=== PATIENT | male | born 1955 | race Caucasian/White ===

== ENCOUNTER 2016-06-25 08:55 | Observation (INO) | payer OTHER ==
[2016-06-25] VITALS (8 sets, daily range): BP systolic 103–165; BP diastolic 59–99; PULSE 55–70; TEMP 36.3–36.6; O2SAT 90–100; Ht 188 cm; Wt 111.8 kg
[~2016-06-25] VITALS: Ht 188 cm; Wt 111.8 kg
[~2016-06-25 08:55] MED LIST: ATOR-24 PO; MECL1TAB42 PO; METO25TA56 PO; NAPR1TAB9 PO; NTRGSL/4 UT
[2016-06-25] MEDS ORDERED: SODIUM CHLORIDE 0.9% 1000ML 1,000 ML IV STA (09:36)
[2016-06-25 09:49] LABS: BASO % 0.9 %; BASO ABS # 0.09 K/uL (0-0.2); COMPLETE YES; EOS % 1.9 %; HEMATOCRIT 44.5 % (42-52); IG% 0.2 %; MEAN CELL VOLUME 89.9 fL (80-100); MEAN CORPUSCULAR HEMOGLOBIN 31.5 pg (25-34); MEAN CORPUSCULAR HGB CONC 35.1 g/dl (32-36); MEAN PLATELET VOLUME 11.2 fL (7.4-10.4); MONO % 5.2 %; NEUT % 72.8 %; PLATELET COUNT 313 K/uL (130-400); RED BLOOD COUNT 4.95 M/uL (4.7-6.1); WHITE BLOOD COUNT 10.54 K/uL (4.8-10.8)
--- NOTE | 2016-06-25 09:52 | EMERGENCY ROOM VISIT NOTE ---
History Report prepared by Alexis: Nicole Edmondson Under the Supervision of: Dr. Chung Baum M.D. First contact with patient: 09:32 Chief Complaint: DIZZY Stated Complaint: NUMBNESS ON LEFT SIDE, SWEATING, BACK PAIN Nursing Triage Summary: pt stated that he has some weakness and it feels different on LLE and LUE as well as feeling like he has some feeling of "puffiness" around to left eye as well no facial droop noted as well no changes in speech. History of Present Illness The patient is a 61 year old male who presents to the Emergency Room with complaints of persistent, worsening left lower extremity numbness that began around 0620 this morning. He currently rates his discomfort as a 3/10 in severity. The patient states that he typically drives an hour to and from work each day. He states that this morning he started noting left lower extremity numbness at 0620 stating that it felt like his left leg fell asleep. The patient states that by 0720 he noticed increase numbness and states that he didn 't feel right. He additionally notes slight left arm numbness, left eye puffiness, slurring of words, and dizziness with his symptoms today. The patient additionally notes that he has been feeling shaky and diaphoretic. He states that he felt that he was stumbling this morning and could not walk properly. The patient denies ever experiencing something like this in the past. He states that he had a previous [place] 11-12 years ago, but denies any history of stroke or TIA. The patient states that he took half of a Meclizine tablet this morning at 0720 without relief of his symptoms. He denies any chest pain or headache. Source of History: patient Onset: 0620 this morning Position: other (left lower extremity) Symptom Intensity: 3/10 Quality: numbness Timing: worsening, other (persistent) Associated Symptoms: + diaphoresis, No chest pain, No headache Note: Associated Symptoms: slurring of words, stumbling, dizziness, left eye puffiness Review of Systems See HPI for pertinent positives & negatives. A total of 10 systems reviewed and were otherwise negative. Past Medical & Surgical Medical Problems: (1) Hypertension (2) Myocardial infarction Family History No pertinent family history Social History Smoking Status: Current Every Day Smoker Marital Status: Housing Status: lives with significant other Occupation Status: employed Current/Historical Medications Scheduled Atorvastatin (Lipitor), 40 MG PO DAILY Lisinopril (Zestril), 20 MG PO DAILY Meclizine Hcl (Meclizine Hcl), 25 MG PO TID Metoprolol Tartrate (Lopressor) (Lopressor), 12.5 MG PO BID Nitroglycerin (Nitroglycerin Lingual), 1 SPRAY PO UD Scheduled PRN Naproxen (Aleve), 220 MG PO for Pain Allergies Coded Allergies: No Known Allergies (Unverified , 11/30/14) Physical Exam Vital Signs Date Time Temp Pulse Resp B/P Pulse Ox O2 Delivery O2 Flow Rate FiO2 06/25/16 11:39 58 17 163/102 97 Room Air 06/25/16 10:29 56 16 174/115 96 06/25/16 10:12 52 16 149/89 06/25/16 09:53 96 Room Air 06/25/16 09:52 60 16 149/94 96 Room Air 06/25/16 09:16 59 06/25/16 09:01 36.7 59 18 180/93 98 Room Air Physical Exam GENERAL: Patient is in no acute distress. HEENT: No acute trauma, normocephalic atraumatic, mucous membranes moist, no nasal congestion, no scleral icterus. NECK: No stridor, no adenopathy, no meningismus, trachea is midline. LUNGS: Clear to auscultation bilaterally, no wheeze, no rhonchi, breath sounds equal. HEART: Without murmurs gallops or rubs, regular rate and rhythm. ABDOMEN: Soft, nontender, bowel sounds positive, no hernias, no peritonitis. EXTREMITIES: No cyanosis or edema, full range of motion of all the joints without pain or difficulty, no signs for acute trauma. NEUROLOGIC: Awake and alert, no drift to the upper extremities. No cerebellar dysfunction to upper extremities. No facial droop or speech slur. Very subtle drift to left leg. Some difficulty with cerebellar function when testing left leg. SKIN: No rash, no jaundice, no diaphoresis. Medical Decision & Procedures ER Provider Diagnostic Interpretation: CT results as stated below per my review and radiologist interpretation: HEAD CT NONCONTRAST CT DOSE: 638.56 mGycm HISTORY: Stroke symptoms. Left-sided numbness. TECHNIQUE: Multiaxial CT images of the head were performed without the use of intravenous contrast. Automated exposure control was utilized for this study. Comparison: None. Findings: The paranasal sinuses and mastoid air cells are clear. The calvarium and skull base are intact. The ventricles and sulci are within normal limits. There is no mass, hematoma, midline shift, or acute infarct. Impression: No acute intracranial abnormality. Electronically signed by: Steve Prasad M.D. 06/25/2016 10:29 AM Dictated Date/Time: 06/25/2016 9:49 AM Laboratory Results 06/25/16 09:30 Red Blood Count 4.95, Mean Corpuscular Volume 89.9, Mean Corpuscular Hemoglobin 31.5, Mean Corpuscular Hemoglobin Concent 35.1, Mean Platelet Volume 11.2, Neutrophils (%) (Auto) 72.8, Lymphocytes (%) (Auto) 19.0, Monocytes (%) (Auto) 5.2, Eosinophils (%) (Auto) 1.9, Basophils (%) (Auto) 0.9, Neutrophils # (Auto) 7.68, Lymphocytes # (Auto) 2.00, Monocytes # (Auto) 0.55, Eosinophils # (Auto) 0.20, Basophils # (Auto) 0.09 06/25/16 09:30 Test 06/25/16 09:30 06/25/16 10:01 06/25/16 10:09 White Blood Count 10.54 K/uL (4.8-10.8) Red Blood Count 4.95 M/uL (4.7-6.1) Hemoglobin 15.6 g/dL (14.0-18.0) Hematocrit 44.5 % (42-52) Mean Corpuscular Volume 89.9 fL (80-100) Mean Corpuscular Hemoglobin 31.5 pg (25-34) Mean Corpuscular Hemoglobin Concent 35.1 g/dl (32-36) Platelet Count 313 K/uL (130-400) Mean Platelet Volume 11.2 fL (7.4-10.4) Neutrophils (%) (Auto) 72.8 % Lymphocytes (%) (Auto) 19.0 % Monocytes (%) (Auto) 5.2 % Eosinophils (%) (Auto) 1.9 % Basophils (%) (Auto) 0.9 % Neutrophils # (Auto) 7.68 K/uL (1.4-6.5) Lymphocytes # (Auto) 2.00 K/uL (1.2-3.4) Monocytes # (Auto) 0.55 K/uL (0.11-0.59) Eosinophils # (Auto) 0.20 K/uL (0-0.5) Basophils # (Auto) 0.09 K/uL (0-0.2) RDW Standard Deviation 43.5 fL (36.4-46.3) RDW Coefficient of Variation 13.2 % (11.5-14.5) Immature Granulocyte % (Auto) 0.2 % Immature Granulocyte # (Auto) 0.02 K/uL (0.00-0.02) Prothrombin Time 11.0 SECONDS (9.0-12.0) Prothromb Time International Ratio 1.0 (0.9-1.1) Activated Partial Thromboplast Time 27.5 SECONDS (21.0-31.0) Partial Thromboplastin Ratio 1.1 Anion Gap 12.0 mmol/L (3-11) Est Creatinine Clear Calc Drug Dose 78.7 ml/min Estimated GFR () 67.8 Estimated GFR (Non- 58.5 BUN/Creatinine Ratio 12.2 (10-20) Calcium Level 9.3 mg/dl (8.5-10.1) Total Creatine Kinase 157 U/L (39-308) Creatine Kinase MB 1.7 ng/ml (0.5-3.6) Creatine Kinase MB Ratio 1.1 (0-3.0) Troponin I < 0.015 ng/ml (0-0.045) Thyroid Stimulating Hormone (TSH) 1.340 uIu/ml (0.300-4.500) Bedside Glucose 105 mg/dl (70-99) Bedside Prothrombin Time INR 1.1 (0.9-1.1) Laboratory results reviewed by me. Medications Administered Medications (Trade) Dose Ordered Sig/Stoney Route Start Time Stop Time Status Last Admin Dose Admin Sodium Chloride (Nss 1000ml) 1,000 ml @ 200 mls/hr Q5H STAT IV 06/25/16 09:36 06/25/16 12:55 DC 06/25/16 10:09 200 MLS/HR Aspirin (Aspirin Chew) 324 mg NOW STAT PO 06/25/16 10:40 06/25/16 10:41 DC 06/25/16 10:47 324 MG Enoxaparin Sodium (Lovenox Inj) 40 mg QAM SC 06/25/16 11:30 07/25/16 11:29 06/25/16 15:21 40 MG ECG Indication: other (dizzy) Rate (beats per minute): 55 Rhythm: sinus bradycardia Findings: no acute ischemic change, no ectopy ED Course 0933: The patient was evaluated in room A3. A complete history and physical exam was performed. 0936: Ordered Sodium Chloride 1000 ml @ 200 mls/hr IV. 1011: I discussed the patient's case with Felicia Lin Neurology. She is going to evaluate the patient over TeleStroke. 1038: I discussed the patients case with Felicia Babb. After her evaluation she does not believe that the patient meets criteria for TPA, but should start Aspirin 1040: Ordered Aspirin 324 mg PO. 1044: I discussed the patients case with Dr. Dozier [facility]. She is going to evaluate the patient for further treatment. Medical Decision The patient is a 61 year old male who presents to the ED with complaints of numbness. Differential diagnoses considered include Stroke or TIA, electrolyte imbalance, dehydration, anemia, infection, cardiac ischemia. There is no leukocytosis or concerning anemia. No significant electrolyte abnormality, kidney failure. There is no coagulopathy. Brain CT shows no acute bleed or mass effect. EKG shows a sinus bradycardia, no acute ischemia. Cardiac enzyme testing 1 is not suggestive of acute cardiac injury. On exam, the patient did have some very subtle left lower leg weakness and left lower extremity cerebellar dysfunction. The patient was aggressively managed. A stroke alert was called. The [place] telemedicine neurologist was involved. It was decided that the patient was out of the window for TPA. The patient does seem to be feeling better as time goes on, he feels as if things have improved since being here in the hospital. The patient did receive IV saline and oral aspirin. I talked with him, I talked with the case supervisor. The on- call hospitalist was consulted. The patient requires a thorough CVA workup. Consults Time Called: 1006 Consulting Physician: Felicia Lin Neurology Returned Call: [phone] I discussed the patient's case with Felicia Lin Neurology. She is going to evaluate the patient over TeleStroke. Additional Consults: Time Called: 1040 Consulted Physician: LILY Denton Returned Call: [phone] Additional Comments: I discussed the patients case with LILY Denton. She is going to evaluate the patient for further treatment. Impression Primary Impression: Left-sided weakness Critical Care I have personally spent greater than 35 minutes of critical care time in the direct management of this patient. This includes bedside care, interpretation of diagnostic studies, and testing, discussion with consultants, patient, and family members, and other required patient management activities. This 35 minutes is in excess of all separately billable procedures. Scribe Attestation The scribe's documentation has been prepared under my direction and personally reviewed by me in its entirety. I confirm that the note above accurately reflects all work, treatment, procedures, and medical decision making performed by me. Departure Information Dispostion Being Evaluated By Hospitalist Quinten Lam M.D. (PCP)
[2016-06-25 09:57] LABS: PARTIAL THROMBOPLASTIN RATIO 1.1
[2016-06-25 09:59] LABS: BLOOD UREA NITROGEN 16 mg/dl (7-18); BUN/CREATININE RATIO 12.2 (10-20); CALCIUM 9.3 mg/dl (8.5-10.1); CARBON DIOXIDE 21 mmol/L (21-32); CHLORIDE 106 mmol/L (98-107); GLUCOSE 113 mg/dl (70-99); POTASSIUM 4.3 mmol/L (3.5-5.1); SODIUM 139 mmol/L (136-145)
[2016-06-25 10:03] LABS: CKMB/CK RATIO 1.1 (0-3.0)
[2016-06-25] MEDS ORDERED: LISI-725 PO (10:03)
[2016-06-25] MEDS ORDERED: NITR0.4S76 PO (10:04)
--- NOTE | 2016-06-25 10:30 | DIAGNOSTIC IMAGING REPORT ---
HEAD CT NONCONTRAST CT DOSE: 638.56 mGycm HISTORY: Stroke symptoms. Left-sided numbness. TECHNIQUE: Multiaxial CT images of the head were performed without the use of intravenous contrast. Automated exposure control was utilized for this study. Comparison: None. Findings: The paranasal sinuses and mastoid air cells are clear. The calvarium and skull base are intact. The ventricles and sulci are within normal limits. There is no mass, hematoma, midline shift, or acute infarct. Impression: No acute intracranial abnormality. Electronically signed by: Steve Prasad M.D. 06/25/2016 10:29 AM Dictated Date/Time: 06/25/2016 9:49 AM
[2016-06-25] MEDS ORDERED: ASPIRIN 81 MG CHEW PO STA (10:40)
[2016-06-25] MEDS ORDERED: ACETAMINOPHEN 325 MG TAB PO PRN (11:30)
[2016-06-25] MEDS ORDERED: LORAZEPAM 2 MG/ML 1 ML VIAL IV PRN (11:30)
[2016-06-25] MEDS ORDERED: ONDANSETRON INJ 2 MG/ML 2 ML VIAL IV PRN (11:30)
[2016-06-25] MEDS ORDERED: ALUMINUM/MAGNESIUM/SIMETH (MAALOX MAX) 30 ML UDC PO PRN (11:30)
[2016-06-25] MEDS ORDERED: HydrALAZINE HCL 20 MG/ML VIAL IV. PRN (11:30)
[2016-06-25] MEDS ORDERED: MAGNESIUM HYDROXIDE SUSP 30 ML UDC PO PRN (11:30)
[2016-06-25] MEDS ORDERED: PHARMACIST DISCHARGE MED REC CONSULT PRN (11:30)
--- NOTE | 2016-06-25 11:56 | History and Physical ---
History & Physical Date & Time of Service: Jun 25, 2016 at 11:44 Chief Complaint: Numbness On Left Side, Sweating, Back Pain Primary Care Physician: Quinten Merino M.D. History of Present Illness Source: patient, hospital records This patient is a pleasant 61-year-old male that presents the emergency department complaining of a numbness and tingling sensation particularly in his left lower extremity that started at approximately 6 AM this morning. He also notes that his legs felt "." He was having difficulty walking. He also felt like his speech was slightly slurred. His coworkers did not mention anything abnormal about his speech. His symptoms have been slowly improving. He does also note some numbness and tingling in his left arm and the left side of his face. He denies any headaches. No changes in vision. He denies any chest pain or pressure. He denies any shortness of breath. He is complaining of an odd sensation in between his shoulder blades that he describes as a cold water sensation. He has been relatively healthy recently. He was treated a few weeks back for a sinus infection. The symptoms dissipated. He denies any recent fever or chills. The patient does have a history of hypertension. He reports taking his morning dose of Lopressor this morning at approximately 4:30 AM. Past Medical/Surgical History History of CT approximately 10 years ago Hypertension Family History No pertinent family history Father- of an CT in his 60s Social History Smoking Status: Current Every Day Smoker (smokes 6-7 cigarettes per day) Alcohol Use: socially Marital Status: Housing status: lives with significant other Occupational Status: employed Allergies Coded Allergies: No Known Allergies (Unverified , 11/30/14) Home Medications Scheduled Atorvastatin (Lipitor), 40 MG PO DAILY Lisinopril (Zestril), 20 MG PO DAILY Meclizine Hcl (Meclizine Hcl), 25 MG PO TID Metoprolol Tartrate (Lopressor) (Lopressor), 12.5 MG PO BID Nitroglycerin (Nitroglycerin Lingual), 1 SPRAY PO UD Scheduled PRN Naproxen (Aleve), 220 MG PO for Pain Review of Systems 10 system review performed and negative unless noted in HPI or below Physical Exam Vital Signs Date Time Temp Pulse Resp B/P Pulse Ox O2 Delivery O2 Flow Rate FiO2 06/25/16 11:39 58 17 163/102 97 Room Air 06/25/16 10:29 56 16 174/115 96 06/25/16 10:12 52 16 149/89 06/25/16 09:53 96 Room Air 06/25/16 09:52 60 16 149/94 96 Room Air 06/25/16 09:16 59 06/25/16 09:01 36.7 59 18 180/93 98 Room Air VITALS: Vitals are noted significantly hypertensive GENERAL: 61-year-old male, anxious in appearance SKIN: The skin was without rashes, erythema, edema, or bruising. HEAD: Normocephalic atraumatic. EYES: Pupils equal round and reactive to light and accommodation. Conjunctivae without injection, sclerae without icterus. Extraocular movements intact. MOUTH: Mucous membranes slightly dry Tonsils are not enlarged. Pharynx without erythema or exudate. Uvula midline. Airway patent. Tongue does not deviate. NECK: Supple without nuchal rigidity. No lymphadenopathy. No JVD. HEART: Regular rate and rhythm without murmurs gallops or rubs. LUNGS: Clear to auscultation bilaterally without wheezes, rales or rhonchi. No accessory muscle use. ABDOMEN: Positive bowel sounds x 4.Soft, nontender, without organomegaly. No guarding or rebound tenderness. MUSCULOSKELETAL: No muscle atrophy, erythema, or edema noted. Strength 4/5 in the left lower extremity. Otherwise 5/5 throughout NEURO: Patient was alert and oriented to person place and time. Dull sensation noted to the left cheek and left leg. Cerebellar function intact. Negative pronator drift. Diagnostics Laboratory Results Results Past 24 Hours Test 06/25/16 09:30 06/25/16 10:01 06/25/16 10:09 Range/Units White Blood Count 10.54 4.8-10.8 K/uL Red Blood Count 4.95 4.7-6.1 M/uL Hemoglobin 15.6 14.0-18.0 g/dL Hematocrit 44.5 42-52 % Mean Corpuscular Volume 89.9 80-100 fL Mean Corpuscular Hemoglobin 31.5 25-34 pg Mean Corpuscular Hemoglobin Concent 35.1 32-36 g/dl Platelet Count 313 130-400 K/uL Mean Platelet Volume 11.2 7.4-10.4 fL Neutrophils (%) (Auto) 72.8 % Lymphocytes (%) (Auto) 19.0 % Monocytes (%) (Auto) 5.2 % Eosinophils (%) (Auto) 1.9 % Basophils (%) (Auto) 0.9 % Neutrophils # (Auto) 7.68 1.4-6.5 K/uL Lymphocytes # (Auto) 2.00 1.2-3.4 K/uL Monocytes # (Auto) 0.55 0.11-0.59 K/uL Eosinophils # (Auto) 0.20 0-0.5 K/uL Basophils # (Auto) 0.09 0-0.2 K/uL RDW Standard Deviation 43.5 36.4-46.3 fL RDW Coefficient of Variation 13.2 11.5-14.5 % Immature Granulocyte % (Auto) 0.2 % Immature Granulocyte # (Auto) 0.02 0.00-0.02 K/uL Prothrombin Time 11.0 9.0-12.0 SECONDS Prothromb Time International Ratio 1.0 0.9-1.1 Activated Partial Thromboplast Time 27.5 21.0-31.0 SECONDS Partial Thromboplastin Ratio 1.1 Sodium Level 139 136-145 mmol/L Potassium Level 4.3 3.5-5.1 mmol/L Chloride Level 106 98-107 mmol/L Carbon Dioxide Level 21 21-32 mmol/L Anion Gap 12.0 3-11 mmol/L Blood Urea Nitrogen 16 7-18 mg/dl Creatinine 1.30 0.60-1.40 mg/dl Est Creatinine Clear Calc Drug Dose 78.7 ml/min Estimated GFR () 67.8 Estimated GFR (Non- 58.5 BUN/Creatinine Ratio 12.2 10-20 Random Glucose 113 70-99 mg/dl Calcium Level 9.3 8.5-10.1 mg/dl Total Creatine Kinase 157 39-308 U/L Creatine Kinase MB 1.7 0.5-3.6 ng/ml Creatine Kinase MB Ratio 1.1 0-3.0 Troponin I < 0.015 0-0.045 ng/ml Bedside Glucose 105 70-99 mg/dl Bedside Prothrombin Time INR 1.1 0.9-1.1 Diagnostic Radiology Patient: IZA REGALADO Address1: [address] [facility] Rec: [id number] Address2: Acct ID: [id number] [facility] Zip: [place] [address] Date: 1955 Sex: M Room/Bed: Ref Phy: Quinten Merino M.D. SC: JESSICA Fofana Phy: Report #: [id number] Soheila Phy: Quinten Merino M.D. Test: HWO Admit Phy: Derrick Man: JOCELYNE Interpreting Phy: Steve Prasad MD Diagnosis: NUMBNESS ON LEFT SIDE, SWEATING, BACK PAIN Ordering Phy: Chung Baum M.D. Service Date: 06/25/16 Admit Date: 06/25/16 MNE: [id number] CONF: DICTATED BY: Steve Prasad M.D.]] CC: Chung Baum M.D. Maniglia, Anthony J, M.D. Endcc: [~ rep ct add3]] HEAD CT NONCONTRAST CT DOSE: 638.56 mGycm HISTORY: Stroke symptoms. Left-sided numbness. TECHNIQUE: Multiaxial CT images of the head were performed without the use of intravenous contrast. Automated exposure control was utilized for this study. Comparison: None. Findings: The paranasal sinuses and mastoid air cells are clear. The calvarium and skull base are intact. The ventricles and sulci are within normal limits. There is no mass, hematoma, midline shift, or acute infarct. Impression: No acute intracranial abnormality. Electronically signed by: Steve Prasad M.D. 06/25/2016 10:29 AM Dictated Date/Time: 06/25/2016 9:49 AM The status of this report is Signed. EKG Sinus bradycardia 55 bpm No acute ischemic changes noted Impression Assessment and Plan 61-year-old male with a past medical history of CT, coronary artery disease and hypertension presents emergency department with paresthesias in the left lower extremity. Left lower extremity is noted to be weak on exam. ?TIA vs CVA -Observe in telemetry -Neuro checks every 4 hours -MRI brain combo -Check echo -Trend cardiac enzymes -PT eval -Allow for permissive hypertension for now -Lipid profile -Neurology consult -Start ASA 324 mg daily -Smoking cessation -Blood pressure recommendations for the first month post hospital discharge 150/ 90-130/80, and after that blood pressure recommendations 130/80-110/70 -Total cholesterol goal 100- 200 and LDL goal less than 100 -Hemoglobin A1c goal less than 7 -Encourage cardiovascular exercise at least 3 times a week for 30 minutes. Hypertension-goal BP is noted above -Continue Lopressor 12.5 mg BID -Continue lisinopril 20 mg daily -Hydralazine 10 mg IV q 6 hr PRN Coronary artery disease status post CT -Continue medical management with beta dash, Livan and statin -ASA 324 daily added DVT prophylaxis -Lovenox 40 mg subQ daily -TEDS, SCDs CODE STATUS -LEVEL I FULL CODE I agree with PA assessment and plan and have seen and examined pt myself VSS, BP uncontrolled Labs reviewed States having paresthesias in left lower ext R/O SVA, MRI combo, carotid US pending Will also obtain HgA1C, TSH, B12 Level of Care Telemetry Resuscitation Status FULL RESUSCITATION VTE Prophylaxis VTE Risk Assessment Done? Y/N: Yes Risk Level: Low Given or contraindicated: Enoxaparin (Lovenox)SQ, T.E.D. Stockings, SCD's
[2016-06-25] MEDS ORDERED: LORAZEPAM INJ 0.5 MG in SYRINGE 0.75 ML IV PRN (13:15)
[2016-06-25] MEDS ORDERED: IV FLUIDS COMPLETED PRN (13:45)
[2016-06-25] MEDS: ENOXAPARIN 40 MG/0.4 ML SYR SC SCH (15:21)
--- NOTE | 2016-06-25 16:21 | ECHOCARDIOGRAM REPORT ---
*NOTICE TO RECEIVING CONSTITUTION PARTY AGENCY This information is strictly Confidential and protected under [place] law. [place] law prohibits you from making any further disclosure of this information unless further disclosure is expressly permitted by the written consent of the person to whom it pertains or is authorized by law. A general authorization for the release of medical or other information is not sufficient for this purpose. Hospital accepts no responsibility if the information is made available to any other person, INCLUDING THE PATIENT. Interpretation Summary * Name: IZA REGALADO Study Date: 06/25/2016 01:48 PM BP: 163/102 mmHg * Patient Location: C.2T\S\S229\S\2 HR: 60 * : 1955 (M/d/yyyy) Gender: Male Height: 74 in * Age: 61 yrs Ethnicity: CA Weight: 248 lb * Ordering Physician: Rand Krishnamurthy * Referring Physician: Self, Referred * Performed By: José Luis Cordon RCS * * Reason For Study: Source of cerebral disturbance * BSA: 2.4 m2 * -- Conclusions -- * 1. Normal LV size and wall thickness. * 2. Normal LV systolic function. LVEF 60-65%. No regional wall motion abnormalities. * 3. RV not well visualized but size and function appears grossly normal. * 4. No significant valvular pathology. * 5. Positive saline contrast study suggestive of PFO. * 6. No prior studies for comparison. Procedure Details * A complete two-dimensional transthoracic echocardiogram was performed (2D, M-mode, Doppler and color flow Doppler). * A saline contrast injection was performed to assess for cardiac shunting. * The injection was performed through an intravenous line in the right arm. * The attending nurse who injected the saline contrast was José Luis Veras RN. * A total of 20 cc of agitated saline was given. * A contrast injection of Definity was performed to improve assessment of LV function. * Contrast was injected into an intravenous site in the left arm. * One vial of Definity ultrasound contrast was diluted in normal saline to a total volume of 10 ml. A total of '2' ml of solution was administered during imaging. * Lot # [id number] of Definity utilized for procedure. * Expiration date . * The attending nurse who injected the contrast agent was josé luis Veras RN. Left Ventricle * The left ventricle is grossly normal size. * There is mild concentric left ventricular hypertrophy. * Ejection Fraction = 60-65%. * No regional wall motion abnormalities noted. Right Ventricle * The right ventricle is grossly normal size. * The right ventricle is not well visualized. * The right ventricular systolic function is normal as assessed by tricuspid annular plane systolic excursion (TAPSE) (normal >1.5 cm). Atria * The left atrial size is normal. * Right atrial size is normal. * Injection of contrast documented an interatrial shunt. Mitral Valve * The mitral valve is grossly normal. * There is no mitral valve stenosis. * Significant mitral regurgitation is absent. Tricuspid Valve * The tricuspid valve is not well visualized, but is grossly normal. * There is no tricuspid stenosis. * There is trace tricuspid regurgitation. Aortic Valve * The aortic valve opens well. * No hemodynamically significant valvular aortic stenosis. * There is no significant aortic regurgitation. Pulmonic Valve * The pulmonary valve is inadequately visualized, but the Doppler data is adequate for interpretation. * Pulmonic stenosis is absent. * There is no significant pulmonary regurgitation. Great Vessels * The aortic root and proximal ascending aorta are normal sized. * No Doppler or imaging evidence of an aortic coarctation. Pericardium/Pleural * There is no pericardial effusion. Great Vessels * Normal inferior vena cava size and collapsability with sniff indicates a normal right atrial pressure of 3 mmHg MMode 2D Measurements and Calculations IVSd 1.2 cm IVSs 1.6 cm LVIDd 5.0 cm LVIDs 3.0 cm LVPWd 1.2 cm LVPWs 1.6 cm IVS/LVPW 0.94 FS 41.0 % EDV(Teich) 119.1 ml ESV(Teich) 33.9 ml EF(Teich) 71.5 % EDV(cubed) 126.2 ml ESV(cubed) 26.0 ml EF(cubed) 79.4 % % IVS thick 33.4 % % LVPW thick 28.0 % LV mass(C)d 236.3 grams LV mass(C)dI 99.2 grams/m\S\2 LV mass(C)s 168.7 grams LV mass(C)sI 70.9 grams/m\S\2 CO(Teich) 5.1 l/min CI(Teich) 2.1 l/min/m\S\2 SV(Teich) 85.2 ml SI(Teich) 35.8 ml/m\S\2 CO(cubed) 6.0 l/min CI(cubed) 2.5 l/min/m\S\2 SV(cubed) 100.2 ml SI(cubed) 42.1 ml/m\S\2 Ao root diam 3.2 cm Ao root area 8.2 cm\S\2 ACS 2.1 cm LA dimension 4.6 cm LA/Ao 1.4 LVAd ap4 44.6 cm\S\2 LVLd ap4 9.6 cm EDV(MOD-sp4) 167.0 ml LVAs ap4 25.1 cm\S\2 LVLs ap4 8.2 cm ESV(MOD-sp4) 64.0 ml EF(MOD-sp4) 61.7 % LVAd ap2 42.6 cm\S\2 LVLd ap2 9.5 cm EDV(MOD-sp2) 154.0 ml LVAs ap2 22.1 cm\S\2 LVLs ap2 8.0 cm ESV(MOD-sp2) 49.0 ml EF(MOD-sp2) 68.2 % CO(MOD-sp4) 6.2 l/min CI(MOD-sp4) 2.6 l/min/m\S\2 SV(MOD-sp4) 103.0 ml SI(MOD-sp4) 43.3 ml/m\S\2 CO(MOD-sp2) 6.3 l/min CI(MOD-sp2) 2.6 l/min/m\S\2 SV(MOD-sp2) 105.0 ml SI(MOD-sp2) 44.1 ml/m\S\2 Doppler Measurements and Calculations MV E max jerome 94.3 cm/sec MV A max jerome 68.6 cm/sec MV E/A 1.4 MV P1/2t max jerome 93.0 cm/sec MV P1/2t 75.0 msec MVA(P1/2t) 2.9 cm\S\2 MV dec slope 363.2 cm/sec\S\2 MV dec time 0.19 sec Ao V2 max 144.4 cm/sec Ao max PG 8.3 mmHg Ao max PG (full) 2.1 mmHg LV V1 max PG 6.2 mmHg LV V1 max 124.9 cm/sec PA V2 max 103.8 cm/sec PA max PG 4.3 mmHg TR max jerome 208.7 cm/sec
[2016-06-25 18:11] LABS: CKMB/CK RATIO 0.9 (0-3.0)
--- NOTE | 2016-06-25 19:21 | DIAGNOSTIC IMAGING REPORT ---
MRI OF THE BRAIN WITHOUT IV CONTRAST CLINICAL HISTORY: Strokelike symptoms. Left-sided numbness. COMPARISON STUDY: CT of the brain dated 06/25/2016. TECHNIQUE: MRI of the brain was performed utilizing various T1 and T2-weighted sequences in the axial, sagittal, and coronal planes. IV contrast was not administered for this examination. FINDINGS: Brain parenchyma: There is minimal subcortical and periventricular microangiopathic change. The brain parenchyma is otherwise normal in appearance. There is no hemorrhage or mass effect. There is no restricted diffusion to suggest acute ischemia. Velasco-white matter differentiation is preserved. No extra-axial fluid collection is seen. The cerebellar tonsils are normal in configuration. Ventricles, sulci, and cisterns: Normal in configuration. Pituitary and sella: Unremarkable. Intracranial vasculature: Normal flow voids are maintained at the skull base. Orbits: The bony orbits are grossly intact. Orbital contents are normal in appearance. Sinuses and mastoids: Clear. Calvarium: Unremarkable. Cervical cord: Partially visualized cervical spinal cord is normal in morphology and signal intensity. IMPRESSION: No acute intracranial abnormality. Electronically signed by: Chung Hanley M.D. 06/25/2016 7:20 PM Dictated Date/Time: 06/25/2016 7:17 PM
--- NOTE | 2016-06-25 19:51 | DIAGNOSTIC IMAGING REPORT ---
ULTRASOUND OF THE CAROTID ARTERIES CLINICAL HISTORY: Left-sided numbness. COMPARISON STUDY: No priors. TECHNIQUE: Real-time, grayscale, and color Doppler sonography of the carotid arteries is performed. Images are reviewed in the transverse and longitudinal planes. FINDINGS: Blood pressure in the right arm measures 135/81 and blood pressure in the left arm measures 137/78. The carotid arteries are patent bilaterally and demonstrate antegrade flow. There is no significant atherosclerotic plaque identified. Normal doppler arterial waveforms are seen throughout. Velocity measurements are listed below. Common carotid peak systolic velocity (cm/sec): RIGHT: 84 LEFT: 115 ICA proximal peak systolic velocity (cm/sec): RIGHT: 44 LEFT: 43 ICA mid peak systolic velocity (cm/sec): RIGHT: 75 LEFT: 83 ICA distal peak systolic velocity (cm/sec): RIGHT: 87 LEFT: 57 ICA/CC peak systolic ratio: RIGHT: 1.0 LEFT: 0.7 Antegrade flow was shown in the vertebral arteries. The external carotid arteries are patent. IMPRESSION: 1. There is no sonographic evidence of hemodynamically significant stenosis in the right or left carotid arterial system. 2. Antegrade flow is shown in the vertebral arteries. Electronically signed by: Chung Hanley M.D. 06/25/2016 7:49 PM Dictated Date/Time: 06/25/2016 7:48 PM
[2016-06-25] MEDS: METOPROLOL TARTRATE 25 MG TAB PO SCH (20:00)
[2016-06-26 03:25] LABS: BENZODIAZEPINE, URINE NEG (NEG); COCAINE,URINE NEG (NEG); PHENCYCLIDINE, URINE NEG (NEG)
[2016-06-26 03:32] VITALS: BP 133/82; PULSE 61; TEMP 36.5; O2SAT 95
[2016-06-26 06:43] LABS: BASO % 0.8 %; BASO ABS # 0.06 K/uL (0-0.2); COMPLETE YES; EOS % 5.2 %; HEMATOCRIT 43.9 % (42-52); IG% 0.1 %; LYMPH % 33.8 %; LYMPH ABS # 2.67 K/uL (1.2-3.4); MEAN CORPUSCULAR HEMOGLOBIN 30.5 pg (25-34); MEAN CORPUSCULAR HGB CONC 33.9 g/dl (32-36); MEAN PLATELET VOLUME 11.3 fL (7.4-10.4); NEUT % 50.1 %; PLATELET COUNT 295 K/uL (130-400); RED BLOOD COUNT 4.88 M/uL (4.7-6.1)
[2016-06-26 07:15] VITALS: BP 126/84; PULSE 69; TEMP 36.6; O2SAT 94
[2016-06-26 07:16] LABS: BUN/CREATININE RATIO 14.6 (10-20); CREATININE 1.3 mg/dl (0.60-1.40); POTASSIUM 4.3 mmol/L (3.5-5.1)
[2016-06-26 07:19] LABS: CHOLESTEROL/HDL RATIO 4.8
[2016-06-26] MEDS: ENOXAPARIN 40 MG/0.4 ML SYR SC SCH (07:50)
[2016-06-26] MEDS: METOPROLOL TARTRATE 25 MG TAB PO SCH (07:50)
[2016-06-26] MEDS ORDERED: LISINOPRIL 20 MG TAB PO SCH (09:00)
[2016-06-26] MEDS ORDERED: ATORVASTATIN 40 MG TAB PO SCH (09:00)
[2016-06-26] MEDS ORDERED: ASPIRIN 81 MG ECTAB PO SCH (09:00)
[2016-06-26 09:49] LABS: ESTIMATED AVERAGE GLUCOSE 123 mg/dl; HA1C FLAG Normal (Normal)
[2016-06-26 11:05] VITALS: BP 124/79; PULSE 55; TEMP 36.9; O2SAT 95
[2016-06-26] MEDS ORDERED: ATOR-24 PO (13:42)
[2016-06-26] MEDS ORDERED: ASPI325T39 PO (13:42)
--- NOTE | 2016-06-26 14:09 | Discharge Instructions ---
Discharge Instructions Admission Reason for Admission: Left Sided Weakness Discharge Discharge Diagnosis / Problem: TIA Discharge Goals Goal(s): Improve function, Diagnostic testing Activity Recommendations Activity Limitations: resume your previous activity Lifting Limitations: none Exercise/Sports Limitations: as tolerated . Instructions / Follow-Up Instructions / Follow-Up you have been treated in the hospital for Leg weakness, numbness and tingling. This is thought to be secondary to a TIA (or mini stroke). Your symptoms seem to be improving. You do have risk factors for stroke-High blood pressure and smoking Please try to quit smoking Your blood pressure was initially high in the emergency dept. It improved during your hospital stay Please continue your blood pressure medication as prescribed I have increased your Lipitor to 80 mg daily I have also started you on a full dose aspirin 325 mg daily Please try to avoid other NSAIDs such as: Aleve, naproxen, Motrin, Advil, ibuprofen or Celebrex while taking aspirin daily Please stop aspirin immediately if you have any blood in your stool or black stools Please follow up with your primary care physician and your flume maker within 1 week. There is possibly a small abnormality noted on your echocardiogram. Please follow up with your flume maker for further evaluation. Return to the emergency department if you have any of the following symptoms: -Fever of 103F or greater -Persistent vomiting - Persistent diarrhea -Lethargy -Chest pain -Shortness of breath -Worsening pain Current Hospital Diet Patient's current hospital diet: AHA Diet (Heart Healthy) Discharge Diet Recommended Diet: AHA Diet (Heart Healthy) Procedures Procedures Performed: MRI-normal Echocardiogram . Normal LV size and wall thickness. * 2. Normal LV systolic function. LVEF 60-65%. No regional wall motion abnormalities. * 3. RV not well visualized but size and function appears grossly normal. * 4. No significant valvular pathology. * 5. Positive saline contrast study suggestive of PFO. Pending Studies Studies pending at discharge: no Laboratory Results Hemoglobin A1c Test 06/26/16 05:50 Range/Units Estimated Average Glucose 123 mg/dl Hemoglobin A1c 5.9 H 4.5-5.6 % Lipid Panel Test 06/26/16 05:50 Range/Units Triglycerides Level 130 0-150 mg/dl Cholesterol Level 184 0-200 mg/dl HDL Cholesterol 38 mg/dl Cholesterol/HDL Ratio 4.8 LDL Cholesterol, Calculated 120 mg/dl Medical Emergencies . Who to Call and When: Medical Emergencies: If at any time you feel your situation is an emergency, please call 911 immediately. . Non-Emergent Contact Non-Emergency issues call your: Primary Care Provider, Client Technologies Analyst . . "Provider Documentation" section prepared by Rand Krishnamurthy. VTE Core Measure Inpt VTE Proph given/why not?: Enoxaparin (Lovenox)TRESA, T.EDawit. Stockings, SCD's
--- NOTE | 2016-06-26 14:21 | Discharge Summary ---
Discharge Summary Admission Date: Jun 25, 2016 at 11:43 Discharge Date: Jun 26, 2016 Discharge Disposition: Home Principal Diagnosis: TIA Problems/Secondary Diagnoses: HTN RI HLD Procedures: MRI OF THE BRAIN WITHOUT IV CONTRAST CLINICAL HISTORY: Strokelike symptoms. Left-sided numbness. COMPARISON STUDY: CT of the brain dated 06/25/2016. TECHNIQUE: MRI of the brain was performed utilizing various T1 and T2-weighted sequences in the axial, sagittal, and coronal planes. IV contrast was not administered for this examination. FINDINGS: Brain parenchyma: There is minimal subcortical and periventricular microangiopathic change. The brain parenchyma is otherwise normal in appearance. There is no hemorrhage or mass effect. There is no restricted diffusion to suggest acute ischemia. Velasco-white matter differentiation is preserved. No extra-axial fluid collection is seen. The cerebellar tonsils are normal in configuration. Ventricles, sulci, and cisterns: Normal in configuration. Pituitary and sella: Unremarkable. Intracranial vasculature: Normal flow voids are maintained at the skull base. Orbits: The bony orbits are grossly intact. Orbital contents are normal in appearance. Sinuses and mastoids: Clear. Calvarium: Unremarkable. Cervical cord: Partially visualized cervical spinal cord is normal in morphology and signal intensity. IMPRESSION: No acute intracranial abnormality. Electronically signed by: Chung Hanley M.D. 06/25/2016 7:20 PM Dictated Date/Time: 06/25/2016 7:17 PM ULTRASOUND OF THE CAROTID ARTERIES CLINICAL HISTORY: Left-sided numbness. COMPARISON STUDY: No priors. TECHNIQUE: Real-time, grayscale, and color Doppler sonography of the carotid arteries is performed. Images are reviewed in the transverse and longitudinal planes. FINDINGS: Blood pressure in the right arm measures 135/81 and blood pressure in the left arm measures 137/78. The carotid arteries are patent bilaterally and demonstrate antegrade flow. There is no significant atherosclerotic plaque identified. Normal doppler arterial waveforms are seen throughout. Velocity measurements are listed below. Common carotid peak systolic velocity (cm/sec): RIGHT: 84 LEFT: 115 ICA proximal peak systolic velocity (cm/sec): RIGHT: 44 LEFT: 43 ICA mid peak systolic velocity (cm/sec): RIGHT: 75 LEFT: 83 ICA distal peak systolic velocity (cm/sec): RIGHT: 87 LEFT: 57 ICA/CC peak systolic ratio: RIGHT: 1.0 LEFT: 0.7 Antegrade flow was shown in the vertebral arteries. The external carotid arteries are patent. IMPRESSION: 1. There is no sonographic evidence of hemodynamically significant stenosis in the right or left carotid arterial system. 2. Antegrade flow is shown in the vertebral arteries. Electronically signed by: Chung Hanley M.D. 06/25/2016 7:49 PM Dictated Date/Time: 06/25/2016 7:48 PM The status of this report is Signed. Draft = Not yet reviewed or approved by Radiologist. Signed = Reviewed and approved by Radiologist. Interpretation Summary * Name: IZA REGALADO Study Date: 06/25/2016 01:48 PM BP: 163/102 mmHg * Patient Location: .2T\S\S229\S\2 HR: 60 * : 1955 (M/d/yyyy) Gender: Male Height: 74 in * Age: 61 yrs Ethnicity: MS Weight: 248 lb * Ordering Physician: Rand Krishnamurthy * Referring Physician: Self, Referred * Performed By: José Luis Cordon RCS * * Reason For Study: Source of cerebral disturbance * BSA: 2.4 m2 * -- Conclusions -- * 1. Normal LV size and wall thickness. * 2. Normal LV systolic function. LVEF 60-65%. No regional wall motion abnormalities. * 3. RV not well visualized but size and function appears grossly normal. * 4. No significant valvular pathology. * 5. Positive saline contrast study suggestive of PFO. * 6. No prior studies for comparison. (Rand Krishnamurthy, PA-C) Medication Reconciliation New Medications: Aspirin (Aspirin Ec) 325 Mg Tab 1 TAB PO DAILY for 30 Days Changed Medications: Atorvastatin (Lipitor) 40 Mg Tab 80 MG PO DAILY for 30 Days, #60 TAB (Changed from: 40 MG) Continued Medications: Lisinopril (Zestril) 20 Mg Tab 20 MG PO DAILY, TAB Meclizine Hcl (Meclizine Hcl) 25 Mg Tab 25 MG PO TID, #21 Metoprolol Tartrate (Lopressor) (Lopressor) 25 Mg Tab 12.5 MG PO BID, TAB Nitroglycerin (Nitroglycerin Lingual) 0.4 Mg/[place] Spr 1 SPRAY PO UD Discontinued Medications: Naproxen (Aleve) 220 Mg Tab 220 MG PO PRN for Pain, TAB Discharge Exam Patient reports feeling well today. Numbness and tingling is much better. Full strength of the leg. Denies headaches or changes in vision. Review of Systems: Constitutional: No fever Respiratory: No cough, No shortness of breath Cardiovascular: No chest pain Abdomen: No nausea Neurologic: No weakness Physical Exam: General Appearance: no apparent distress Neck: no JVD Respiratory/Chest: lungs clear Cardiovascular: regular rate, rhythm Abdomen / GI: normal bowel sounds, non tender, soft Extremities: no calf tenderness, no pedal edema Neurologic/Psychiatric: no motor/sensory deficits, oriented x 3 Skin: warm/dry (Rand Krishnamurthy PA-C) Hospital Course 61-year-old male with a past medical history of RI, coronary artery disease and hypertension presents emergency department with paresthesias in the left lower extremity. Left lower extremity is noted to be weak on exam. ?TIA vs CVA -Observed in telemetry -Neuro checks every 4 hours -MRI brain combo-negative -Check echo-possible PFO-f/u with your security systems integrator in 1 week -Trend cardiac enzymes-negative -permissive hypertension -Lipid profile-acceptable, but could have better control. I increased his Lipitor from 40 to 80 mg daily -Start ASA 325 mg daily -Smoking cessation -Total cholesterol goal 100- 200 and LDL goal less than 100 -Hemoglobin A1c-5.9 -Encourage cardiovascular exercise at least 3 times a week for 30 minutes. Hypertension- -Continue Lopressor 12.5 mg BID -Continue lisinopril 20 mg daily -Hydralazine 10 mg IV q 6 hr PRN Coronary artery disease status post RI -Continue medical management with beta dash, Livan and statin -ASA 324 daily added DVT prophylaxis -Lovenox 40 mg subQ daily -TEDS, SCDs CODE STATUS -LEVEL I FULL CODE This includes examination of the patient, discharge planning, medication reconciliation, and communication with other providers. (Rand Krishnamurthy PA-C) I agree with PA assessment and plan and have personally seen and examined pt Pt admitted for lower ext weakness Resolved today Stroke w/u neg ECHO pos for PFP Cont ASA and statin on discharge (Raymundo Navarro, D.O.) Discharge Instructions Please refer to the electronic Patient Visit Report (Discharge Instructions) for additional information. (Rand Krishnamurthy PA-C) Follow-Up PCP within 1 week security systems integrator 1-2 weeks (Rand Krishnamurthy PA-C)
[2016-06-26 14:31] VITALS: BP 124/79; PULSE 55; TEMP 36.9; O2SAT 95
--- NOTE | 2016-06-26 15:03 | Pharmacy Progress Note ---
Pharmacist Stroke Counseling Date of Service Jun 26, 2016. Scope Pharmacy has been consulted to provide medication discharge counseling for this patient admitted with transient ischemic attack as per the Pharmacist Discharge Counseling for Stroke Patients Protocol. Medications on Discharge New Medications: Aspirin (Aspirin Ec) 325 Mg Tab 1 TAB PO DAILY for 30 Days Changed Medications: Atorvastatin (Lipitor) 40 Mg Tab 80 MG PO DAILY for 30 Days, #60 TAB (Changed from: 40 MG) Continued Medications: Lisinopril (Zestril) 20 Mg Tab 20 MG PO DAILY, TAB Meclizine Hcl (Meclizine Hcl) 25 Mg Tab 25 MG PO TID, #21 Metoprolol Tartrate (Lopressor) (Lopressor) 25 Mg Tab 12.5 MG PO BID, TAB Nitroglycerin (Nitroglycerin Lingual) 0.4 Mg/[place] Spr 1 SPRAY PO UD Discontinued Medications: Naproxen (Aleve) 220 Mg Tab 220 MG PO PRN for Pain, TAB Action The above medications, specifically ones for stroke treatment/prophylaxis, have been reviewed in detail with the patient and/or patient insurance claim representative(s) prior to discharge. This includes indication, common adverse reactions, drug interactions, and medication administration. Medication counseling has been employed using the teach-back method to ensure understanding. Outcome The patient and/or patient insurance claim representative(s) have demonstrated understanding of the medications. Please note, they are aware that the pharmacist will call them within 72 hours post-discharge to confirm that the appropriate medications are being taken and answer any further medication related questions the patient might have at that time. Contact information Individual to be contacted: PATIENT Relationship to patient (if applicable): Phone number: [phone] OR [phone] Best time to call: ANYTIME Additional comments: Thank you for allowing pharmacy to be involved in the care of this patient. Please call [phone] or [phone] with any additional questions
--- NOTE | 2016-06-28 09:19 | Pharmacy Progress Note ---
Pharmacist Post D/C Phone Note Date of phone call: Jun 28, 2016. Individual with whom pharmacist spoke to: Kirby Tubbs The following questions were reviewed during the phone call with responses listed below each: Can you tell me the medications that you are currently taking as well as when and how you take each medication? - Reported Home Medications Medications Dose Route/Sig Max Daily Dose Days Date Category Aspirin Ec (Aspirin) 325 Mg Tab 1 Tab PO DAILY 30 06/26/16 Rx Lipitor (Atorvastatin Calcium) 40 Mg Tab 80 Mg PO DAILY 30 06/26/16 Rx Nitroglycerin Lingual (Nitroglycerin) 0.4 Mg/[place] Spr 1 [place] PO UD 06/25/16 Reported Zestril (Lisinopril) 20 Mg Tab 20 Mg PO DAILY 06/25/16 Reported Meclizine Hcl 25 Mg Tab 25 Mg PO TID prn 11/30/14 Rx Lopressor (Metoprolol Tartrate) 25 Mg Tab 12.5 Mg PO BID 11/30/14 Reported Added 500mcg VIT B12 When have you missed any doses of your medications? - [] What side effects are you having from your medications? - [] What questions do you have about your medications? - [] What problems are you having obtaining your medications? - [] When is your next appointment with your primary care doctor? - [] Additional comments: - [] As per the Pharmacist Discharge Counseling for Stroke Patients Protocol, this phone call has been completed within 72 hours of discharge. Thank you for allowing us to be involved in the care of this patient. OR The patient and/or patient housing management representative(s) were unable to be reached for a follow-up phone call within the 72 hour time frame. Discharge counseling pharmacist contact information has already been provided to the patient should questions arise. Thank you for allowing us to be involved in the care of this patient.
[2016-06-28] MEDS ORDERED: MECL1TAB42 PO (09:34)
[2016-06-28] MEDS ORDERED: CYAN500T PO (09:35)
--- NOTE | 2016-06-28 09:44 | Pharmacy Progress Note ---
Pharmacist Post D/C Phone Note Date of phone call: Jun 28, 2016. Individual with whom pharmacist spoke to: Kirby Tubbs The following questions were reviewed during the phone call with responses listed below each: Can you tell me the medications that you are currently taking as well as when and how you take each medication? - Patient was able to verbalize name of each medication, dose, route, frequency, indication, and side effects of each medication. Medications Dose Route/Sig Max Daily Dose Days Date Category Vitamin B-12 (Cyanocobalamin) 500 Mcg Tab 500 Mcg PO DAILY 06/28/16 Reported Meclizine Hcl 25 Mg Tab 1 Tab PO TID PRN 10 06/28/16 Reported Aspirin Ec (Aspirin) 325 Mg Tab 1 Tab PO DAILY 30 06/26/16 Rx Lipitor (Atorvastatin Calcium) 40 Mg Tab 80 Mg PO DAILY 30 06/26/16 Rx Nitroglycerin Lingual (Nitroglycerin) 0.4 Mg/[place] Spr 1 [place] PO UD 06/25/16 Reported Zestril (Lisinopril) 20 Mg Tab 20 Mg PO DAILY 06/25/16 Reported Lopressor (Metoprolol Tartrate) 25 Mg Tab 12.5 Mg PO BID 11/30/14 Reported When have you missed any doses of your medications? - Missing atorvastatin dose ~1-2x/week. Stressed importance of adherence to taking the medication daily for cholesterol. What side effects are you having from your medications? - Patient sometime experiences tiredness and orthostatic hypotension with his metoprolol tartrate. He understands to slowly get up from a sitting to standing position and to hold on to the sides of furniture when rising up. What questions do you have about your medications? - None What problems are you having obtaining your medications? - None When is your next appointment with your primary care doctor? - Patient will be seeing his PCP on Saturday at 3:30pm and will be seeing cardiology on Saturday at 2pm. They will determine whether or not he will be following-up with neurology. Additional comments: - None As per the Pharmacist Discharge Counseling for Stroke Patients Protocol, this phone call has been completed within 72 hours of discharge. Thank you for allowing us to be involved in the care of this patient.
== END 2016-06-26 15:53 | disposition home or self-care (01) ==
LOC: ENRESERVTM → ENRESERVDT → C.EDB 08:57 → C.2T 11:43
PROVIDERS: ADMIT Hospitalist; ATTEND Hospitalist
DX: G45.9 Transient cerebral ischemic attack, unspecified (principal); I10 Essential (primary) hypertension; I25.10 Atherosclerotic heart disease of native coronary artery without angina pectoris; I25.2 Old myocardial infarction; F17.200 Nicotine dependence, unspecified, uncomplicated